=== PATIENT | male | born 1955 | race Caucasian/White ===

== ENCOUNTER → 2018-11-18 | Outpatient (CLI) | payer OTHER, MEDICARE ==
[~2018-11-18] MED LIST: CYCL10 PO; DRON2.5 PO; FENO48 PO; FENT50TP TOP; HYDMOR2 PO; LEVO750 PO; Omeprazole20 M1 PO; Tylenol325 MG PO; ZESTORETIC 20-121 EA PO
== END ==
LOC: LAB SHORT 07:26 → OLS 07:26
DX: D22.39 Melanocytic nevi of other parts of face (principal); D48.5 Neoplasm of uncertain behavior of skin
CPT/HCPCS: 88341; 88342

== ENCOUNTER 2023-08-06 22:39 | Inpatient (IN) | payer OTHER ==
[~2023-08-06] VITALS: Ht 167.6 cm; Wt 52.3 kg
[2023-08-06] MEDS ORDERED: NS 1,000 ML IV ONE (23:27)
[2023-08-06 23:30] LABS: BASOPHILS ABSOLUTE AUTO 0.06 K/mm3 (0.00-0.23); BASOPHILS PERCENT AUTO 1 % (0-2); EOSINOPHILS ABSOLUTE AUTO 0.06 K/mm3 (0.00-0.68); EOSINOPHILS PERCENT AUTO 1 % (0-6); Hematocrit 35.8 % (37.0-53.0); Hemoglobin 12.7 g/dL (13.5-17.5); IMMATURE GRAN ABSOLUTE AUTO 0.52 K/mm3 (0.00-0.10); IMMATURE GRAN PERCENT AUTO 5 % (0-1); LYMPHOCYTES ABSOLUTE AUTO 1.09 K/mm3 (0.84-5.20); LYMPHOCYTES PERCENT AUTO 11 % (21-46); MONOCYTES ABSOLUTE AUTO 1.01 K/mm3 (0.16-1.47); MONOCYTES PERCENT AUTO 10 % (4-13); Mean Corpuscular HGB 31.1 pg (26.0-34.0); Mean Corpuscular HGB Conc 35.5 g/dL (31.5-36.5); Mean Corpuscular Volume 88 fL (80-100); Mean Platelet Volume 9.4 fL (9.1-12.4); NEUTROPHILS ABSOLUTE AUTO 7.56 K/mm3 (1.96-9.15); NEUTROPHILS PERCENT AUTO 73 % (41-73); Platelet Count 366 K/mm3 (150-400); RDW Coefficient Variation 13.5 % (11.7-14.2); RDW Standard Deviation 43.7 fL (35.1-46.3); Red Blood Cell Count 4.08 M/mm3 (4.30-5.90)
[2023-08-06] MEDS ORDERED: Ondansetron HCl 2 MG / ML 2ML Vial IV PRN (23:30)
[2023-08-06 23:53] LABS: Albumin, Blood 3.2 g/dL (3.4-5.0); Albumin/Globulin Ratio 0.8 (0.8-1.8); Bilirubin, Total 0.3 mg/dL (0.1-1.0); Bun/Creatinine Ratio 69.2 (12.0-20.0); Calcium, Blood 9.1 mg/dL (8.5-10.1); Creatinine, Blood 2.37 mg/dL (0.60-1.20); Globulin, Blood 3.9 g/dL (2.2-4.0); Potassium, Blood 3.9 mmol/L (3.5-5.5); Total Protein, Blood 7.1 g/dL (6.4-8.2)
[2023-08-07] VITALS (11 sets, daily range): BP systolic 89–120; BP diastolic 57–97
[2023-08-07] MEDS ORDERED: Lactated Ringer's 1,000 ML IV ONE (00:15)
[2023-08-07 00:21] LABS: Magnesium, Blood 2.4 mg/dL (1.6-2.4)
[2023-08-07 00:38] LABS: Beta-hydroxybutyrate 11.2 mg/dL (0.2-2.8)
[2023-08-07] MEDS ORDERED: NS 1,000 ML IV SCH (00:45)
[2023-08-07] MEDS ORDERED: Ondansetron HCl 2 MG / ML 2ML Vial IV PRN (00:50)
[2023-08-07] MEDS ORDERED: Diltiazem HCl 5 MG / ML 5ML Vial IV ONE (01:30)
[2023-08-07] MEDS ORDERED: Loperamide HCl 2 MG Cap PO PRN (01:30)
[2023-08-07] MEDS ORDERED: AMLO5 PO (01:40)
[2023-08-07 02:39] LABS: Base Excess Venous -5.4 mmol/L; PCO2 Venous 25.7 mmHg (38-42); pH Blood Venous 7.46 (7.34-7.37)
[2023-08-07] MEDS ORDERED: Tambocor100 MG PO (02:51)
[2023-08-07] MEDS ORDERED: METO100ER PO (02:52)
[2023-08-07 02:53] LABS: International Normalized Ratio 1.29; Prothrombin Time Results 13.5 Sec (9.7-11.5)
[2023-08-07 02:56] LABS: Campylobacter Sp Not Detected (NOT DETECT)
[2023-08-07 02:57] LABS: Adenovirus F 40/41 Not Detected (NOT DETECT); Astrovirus Not Detected (NOT DETECT); Cryptosporidium Not Detected (NOT DETECT); Cyclospora Cayetanensis Not Detected (NOT DETECT); E. Coli O157 Not Detected (NOT DETECT); Entamoeba Histolytica Not Detected (NOT DETECT); Enteroaggregative E. coli-EAEC Not Detected (NOT DETECT); Enteropathogenic E. coli-EPEC Not Detected (NOT DETECT); Enterotoxigenic E. coli-ETEC Not Detected (NOT DETECT); Giardia Lamblia Not Detected (NOT DETECT); Norovirus GI/GII Not Detected (NOT DETECT); Plesiomonas Shigelloides Not Detected (NOT DETECT); Rotavirus A Not Detected (NOT DETECT); Salmonella Sp Not Detected (NOT DETECT); Sapovirus Not Detected (NOT DETECT); Shiga Toxin-prod E. coli-STEC Not Detected (NOT DETECT); Shigella/Enteroin E. coli-EIEC Not Detected (NOT DETECT); Vibrio Cholerae Not Detected (NOT DETECT); Vibrio Sp Not Detected (NOT DETECT); Yersinia Enterocolitica Not Detected (NOT DETECT)
[2023-08-07] MEDS ORDERED: FURO20 PO (03:37)
[2023-08-07] MEDS ORDERED: ALBU8HFA2 INH (03:39)
--- NOTE | 2023-08-07 04:19 | NUR ---
ASSUMPTION OF CARE/TRANSFER NOTE THIS RN RECEIVED REPORT FROM TRACI NELSON IN THE ED. PT TO PCU AT 0314. ABLE TO AMBULATE FROM GURNEY TO BED. USED COMMODE UPON ARRIVAL. UNABLE TO GET URINE SAMPLE STOOL AND URINE MIXED. PT A&O X4. ABLE TO MAKE NEEDS KNOWN. AFIB WITH HR 90-120 AT REST. HR NOTED TO INCREASE TO 140'S WITH ACTIVITY. PT DENIES CHEST PAIN/PRESSURE. REPORTS OCCASIONAL DIZZINESS. TEMP 99.0 AT THIS TIME. BP STABLE WITH SBP 100-110'S. ON RA WITH SPO2 >92%. BED IN LOWEST POSITION AND CALL LIGHT WITHIN REACH. THIS RN WILL REPORT TO KATELYNN DONOHUE RN.
[2023-08-07 04:34] LABS: Hematocrit 35.5 % (37.0-53.0); Hemoglobin 12.3 g/dL (13.5-17.5); Mean Corpuscular HGB 31.2 pg (26.0-34.0); Mean Corpuscular HGB Conc 34.6 g/dL (31.5-36.5); Mean Corpuscular Volume 90 fL (80-100); Mean Platelet Volume 9.3 fL (9.1-12.4); Platelet Count 315 K/mm3 (150-400); RDW Coefficient Variation 13.6 % (11.7-14.2); Red Blood Cell Count 3.94 M/mm3 (4.30-5.90); White Blood Cell Count 9.67 K/mm3 (4.00-11.30)
[2023-08-07 05:03] LABS: Albumin, Blood 2.9 g/dL (3.4-5.0); Albumin/Globulin Ratio 0.8 (0.8-1.8); Bilirubin, Total 0.4 mg/dL (0.1-1.0); Bun/Creatinine Ratio 73.7 (12.0-20.0); Calcium, Blood 8.5 mg/dL (8.5-10.1); Creatinine, Blood 1.86 mg/dL (0.60-1.20); Globulin, Blood 3.5 g/dL (2.2-4.0); Potassium, Blood 3.8 mmol/L (3.5-5.5); Total Protein, Blood 6.4 g/dL (6.4-8.2)
[2023-08-07 05:07] LABS: BAND PERCENT MAN 6 % (0-8); BASOPHILS PERCENT MAN 0 % (0-2); EOSINOPHILS PERCENT MAN 0 % (0-6); LYMPHOCYTES % ATYPICAL MANUAL 2 % (0-0); LYMPHOCYTES ABSOLUTE MAN 1.25 K/mm3 (0.84-5.20); LYMPHOCYTES PERCENT MAN 11 % (21-46); METAMYELOCYTE ABSOLUTE MAN 0.09 K/mm3 (0.00-0.00); METAMYELOCYTE PERCENT MAN 1 % (0-0); MONOCYTES ABSOLUTE MAN 0.87 K/mm3 (0.16-1.47); MONOCYTES PERCENT MAN 9 % (4-13); NEUTROPHILS ABSOLUTE MAN 7.34 K/mm3 (1.96-9.15); PLASMA CELL ABSOLUTE MAN 0.09 K/mm3 (0.00-0.00); PLASMA CELLS PERCENT MAN 1 % (0-0); SEG NEUTROPHILS PERCENT MAN 70 % (41-73); TOTAL CELLS COUNTED 100
--- NOTE | 2023-08-07 06:14 | NUR ---
MD NOTIFICATION SPOKE TO MD ENNIS REGARDING PT'S BP TRENDING DOWN, ALONG WITH 3-4 EPISODES OF DIARRHEA SINCE ARRIVAL TO UNIT DESPITE IMMODIUM. MD ENNIS WITH ORDER FOR 500ML BOLUS, WILL ADMINISTER PER EMAR.
[2023-08-07] MEDS ORDERED: NS 500 ML IV ONE (06:15)
[2023-08-07] MEDS ORDERED: Albuterol HFA200 ACT/6.7 GM INH INH PRN ×2 (06:25→09:00)
[2023-08-07] MEDS ORDERED: OxyCODONE HCL 5 MG TAB PO PRN (08:50)
--- NOTE | 2023-08-07 08:52 | NUR ---
Upon receiving a referral for spiritual care, I visited with the patient. He talks about his health concerns and shares that he is currently at the age in which both his parents . He shares that he has no oriental orthodox preference but he clearly believes in God and refers to God's evidence in nature and in his life. I provided therapeutic listening, gentle alcohol and drug counselor on remaining centered when answers are unclear and prayer. Patient responded well and showed signs of reduced stress. I will continue to remain available.
[2023-08-07] MEDS ORDERED: Heparin Sodium,Porcine 5,000 UNIT/0.5 ML SDV SC SCH (09:00)
[2023-08-07] MEDS ORDERED: Ipratropium/Albuterol SulF 2.5-0.5MG/3 ML Amp INH SCH (09:00)
[2023-08-07] MEDS ORDERED: Metoprolol Succinate 50 MG TABCR PO SCH (09:00)
[2023-08-07] MEDS ORDERED: Lactated Ringer's 500 ML IV ONE (09:00)
[2023-08-07] MEDS ORDERED: Flecainide Acetate 100 MG Tab PO SCH (09:00)
[2023-08-07 10:20] LABS: Source, Urine Clean Catch
[2023-08-07 10:31] LABS: Appearance, Urine Clear (Clear); Bilirubin, Urine Neg (Neg); Blood, Urine Neg (Neg); Color, Urine Yellow (P-Yellow); Glucose Qualitative, Urine Neg (Neg); Ketones, Urine Neg (Neg); Leukocyte Esterase, Urine Neg (Neg); Nitrite, Urine Neg (Neg); Protein, Urine Neg (Neg); Urobilinogen, Urine NORM (Normal)
[2023-08-07] MEDS ORDERED: Lactated Ringer's 1,000 ML IV SCH (11:05)
[2023-08-07 11:58] LABS: Base Excess Venous -4.1 mmol/L; Bicarbonate Venous 20.9 mmol/L (24.0-30.0); PCO2 Venous 34 mmHg (38-42)
[2023-08-07 13:29] LABS: Bun/Creatinine Ratio 69.9 (12.0-20.0); Calcium, Blood 8.3 mg/dL (8.5-10.1); Creatinine, Blood 1.53 mg/dL (0.60-1.20); Magnesium, Blood 1.9 mg/dL (1.6-2.4)
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
[2023-08-07] MEDS ORDERED: Naloxone HCl 0.4MG / ML 1ML Vial IV PRN (20:30)
[2023-08-07] MEDS ORDERED: FentaNYL Citrate 50 MCG/ML 2 ML Injection IV PRN (20:30)
[2023-08-07] MEDS ORDERED: Acetaminophen 325 MG TABLET PO PRN (20:45)
--- NOTE | 2023-08-07 21:00 | NUR ---
ASSUMPTION OF CARE: THIS RN ASSUMED CARE OF PT AT APPROX 1900. PT ALERT, ORIENTED X4. FLAT AFFECT BUT COOPERATIVE W/ CARE. HR 70-80'S, SINUS W/ PAC'S ON TELE. SBP 90'S, MAP>65. DENIES CHEST PAIN/PRESSURE. SPO2 >95% ON RA, RESPIRATIONS EVEN & UNLABORED. AFEBRILE. UP TO BSC W/ 1P ASSIST, REPORTS PASSING FLATUS BUT NO BM'S. REPOSITIONING INDEPENDENTLY. PT VOICES SIGNIFICANT CONCERN OVER PAIN MANAGEMENT AT THIS TIME. PT STATES HE HAS NOT BEEN ADMINISTERING BOLUS DOSES OF FENTANYL THROUGH HIS PAIN PUMP PER PHYSICIAN ORDERS. PT STATES THAT PO OXYCODONE IS NOT MANAGING HIS PAIN AND IS MAKING HIS STOMACH "FEEL UPSET." CALL TO RESIDENT PHYSICIAN. ORDERS TO D/C OXYCODONE & START IV FENTANYL PRN. DISCUSSED PLAN W/ PT & PT REFUSED IV FENTANYL; REPORTS CONCERNS FOR "OVERDOSING" AND "GOING TO SLEEP AND NOT WAKING UP". PT REQUESTS TYLENOL FOR PAIN MANAGEMENT INSTEAD. TYLENOL ADMINISTERED PER EMAR. PT RESTING IN BED AT THIS TIME. CALL LIGHT IN REACH.
[2023-08-08 04:00] VITALS: BP 114/62
[2023-08-08 04:19] LABS: Base Excess Venous -4.3 mmol/L; Bicarbonate Venous 21.6 mmol/L (24.0-30.0); PCO2 Venous 28.4 mmHg (38-42); pH Blood Venous 7.45 (7.34-7.37)
[2023-08-08 05:28] LABS: Albumin, Blood 2.6 g/dL (3.4-5.0); Anion Gap 13 mmol/L (3-11); Blood Urea Nitrogen 59 mg/dL (8-24); Bun/Creatinine Ratio 49.2 (12.0-20.0); CO2, Blood 20 mmol/L (21-32); Calcium, Blood 8.3 mg/dL (8.5-10.1); Chloride, Blood 112 mmol/L (98-108); Glomerular Filtration Rate 67 (60-); Glucose, Blood 92 mg/dL (70-99); Magnesium, Blood 1.6 mg/dL (1.6-2.4); Phosphorus, Blood 2.7 mg/dL (2.5-4.9); Potassium, Blood 3.8 mmol/L (3.5-5.5); Sodium, Blood 141 mmol/L (136-145)
--- NOTE | 2023-08-08 05:38 | NUR ---
END OF SHIFT NOTE: NO ACUTE EVENTS OVERNIGHT. PT HAS REMAINED ALERT, ORIENTED X4. ABLE T0 CALL APPROPRIATELY & COMMUNICATE NEEDS. HR 70'S, SINUS ON TELE. SBP 90-110'S, DENIES CHEST PAIN/PRESSURE. SPO2 >95% ON RA. AFEBRILE. UP TO BSC FOR MULTIPLE VOIDS, 1 LIQUID BM. INDEPENDENTLY REPOSITIONING IN BED. REPORTS IMPROVEMENT IN PAIN CONTROL THIS AM. NO OTHER NEEDS AT THIS TIME. CALL LIGHT IN REACH. WILL REPORT TO ONCOMING RN.
[2023-08-08 06:03] LABS: BASOPHILS ABSOLUTE AUTO 0.04 K/mm3 (0.00-0.23); BASOPHILS PERCENT AUTO 0 % (0-2); EOSINOPHILS ABSOLUTE AUTO 0.12 K/mm3 (0.00-0.68); EOSINOPHILS PERCENT AUTO 1 % (0-6); Hemoglobin 10.6 g/dL (13.5-17.5); IMMATURE GRAN ABSOLUTE AUTO 0.23 K/mm3 (0.00-0.10); IMMATURE GRAN PERCENT AUTO 2 % (0-1); LYMPHOCYTES ABSOLUTE AUTO 1.44 K/mm3 (0.84-5.20); LYMPHOCYTES PERCENT AUTO 15 % (21-46); MONOCYTES ABSOLUTE AUTO 0.67 K/mm3 (0.16-1.47); MONOCYTES PERCENT AUTO 7 % (4-13); Mean Corpuscular HGB 30.4 pg (26.0-34.0); Mean Corpuscular HGB Conc 33.1 g/dL (31.5-36.5); Mean Corpuscular Volume 92 fL (80-100); NEUTROPHILS ABSOLUTE AUTO 7.36 K/mm3 (1.96-9.15); NEUTROPHILS PERCENT AUTO 75 % (41-73); Platelet Count 329 K/mm3 (150-400); RDW Coefficient Variation 14.2 % (11.7-14.2); RDW Standard Deviation 47.8 fL (35.1-46.3); Red Blood Cell Count 3.49 M/mm3 (4.30-5.90); White Blood Cell Count 9.86 K/mm3 (4.00-11.30)
[2023-08-08 08:10] VITALS: BP 127/82
[2023-08-08] MEDS ORDERED: Mag Sulfate 1 GM/D5% 100ML 100 ML IV STA (09:32)
[2023-08-08] MEDS ORDERED: Potassium Chloride 40 MEQ in NS 250 ML IV ONE (09:35)
[2023-08-08] MEDS ORDERED: NS 1,000 ML BAG IR SCH (09:55)
[2023-08-08] MEDS ORDERED: NS 250 ML IV PRN (09:55)
[2023-08-08 15:19] VITALS: BP 106/78
--- NOTE | 2023-08-08 16:44 | NUR ---
SHIFT SUMMARY: PT REMAINS ALERT AND ORIENTED X4, ABLE TO FOLLOW COMMANDS AND MAKE NEEDS KNOWN. STRENGTH EQUAL BILATERALLY. BP AND HR STABLE. AFEBRILE. SPO2 >98% ON ROOM AIR. RESPIRATIONS EVEN AND UNLABORED. PT ABLE TO SHOWER THIS AM. TOLERATED WELL. PT/OT ORDERED. DIET ADVANCED TO REGULAR. SBA TO AND FROM BATHROOM. CALLS APPROPRIATELY. NOW MEDICAL NO TELE STATUS. PT CURRENTLY WATCHING TV IN BED. BED IN LOW, CALL LIGHT IN REACH, WILL REPORT TO ONCOMING RN.
--- NOTE | 2023-08-08 18:00 | NUR ---
TRANSFER: PT TRANSFERRED TO [facility] 339 VIA WHEELCHAIR. REPORT GIVEN TO KEON Negron RN. ALL BELONGINGS WITH PT
--- NOTE | 2023-08-08 18:02 | NUR ---
patient transferred to room 339 via w/c, report from pcu
[2023-08-08 19:23] VITALS: BP 106/64
[2023-08-09 03:49] VITALS: BP 116/78
--- NOTE | 2023-08-09 04:37 | NUR ---
SHIFT SUMMARY: Pt is admitted for acute kidney injury and is a full code. Is alert and able to make his needs known. Has been a SBA for ADLs. denies pain or discomfort outside of normal when asked but is managed by internal fentanyl pump in right lower ABD. was given prn for diarrhea and nausea.
[2023-08-09 05:44] LABS: BASOPHILS ABSOLUTE AUTO 0.08 K/mm3 (0.00-0.23); BASOPHILS PERCENT AUTO 1 % (0-2); EOSINOPHILS ABSOLUTE AUTO 0.13 K/mm3 (0.00-0.68); EOSINOPHILS PERCENT AUTO 1 % (0-6); Hematocrit 34.6 % (37.0-53.0); Hemoglobin 11.5 g/dL (13.5-17.5); IMMATURE GRAN ABSOLUTE AUTO 0.36 K/mm3 (0.00-0.10); IMMATURE GRAN PERCENT AUTO 2 % (0-1); LYMPHOCYTES ABSOLUTE AUTO 1.71 K/mm3 (0.84-5.20); LYMPHOCYTES PERCENT AUTO 11 % (21-46); MONOCYTES ABSOLUTE AUTO 0.83 K/mm3 (0.16-1.47); MONOCYTES PERCENT AUTO 5 % (4-13); Mean Corpuscular HGB 31.2 pg (26.0-34.0); Mean Corpuscular HGB Conc 33.2 g/dL (31.5-36.5); Mean Corpuscular Volume 94 fL (80-100); Mean Platelet Volume 8.9 fL (9.1-12.4); NEUTROPHILS ABSOLUTE AUTO 12.14 K/mm3 (1.96-9.15); NEUTROPHILS PERCENT AUTO 80 % (41-73); Platelet Count 376 K/mm3 (150-400); RDW Coefficient Variation 14.2 % (11.7-14.2); RDW Standard Deviation 48.9 fL (35.1-46.3); Red Blood Cell Count 3.69 M/mm3 (4.30-5.90); White Blood Cell Count 15.25 K/mm3 (4.00-11.30)
[2023-08-09 06:01] LABS: Bun/Creatinine Ratio 25.1 (12.0-20.0); Calcium, Blood 8.6 mg/dL (8.5-10.1); Potassium, Blood 4.2 mmol/L (3.5-5.5)
[2023-08-09 08:00] VITALS: BP 132/76
[2023-08-09] MEDS ORDERED: Calcium Carbonate 500 MG Tab Chew PO PRN (09:15)
[2023-08-09] MEDS ORDERED: Famotidine 20 MG Tab PO SCH (10:00)
[2023-08-09 15:44] VITALS: BP 116/71
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
--- NOTE | 2023-08-10 07:30 | NUR ---
ASSUMED CARE: PT RESTING IN BED ON RA, NO TELE. IV LEAKING SO REMOVED. RT AT BEDSIDE. NO ACUTE NEEDS OR CONCERNS AT THIS TIME.
[2023-08-10 07:41] VITALS: BP 132/81
--- NOTE | 2023-08-10 09:47 | NUR ---
DR ARMAS CAME TO SEE PT AND STATED HE MAY DC TODAY. PT'S FRIEND AND PT EXPRESSED CONCERNS WITH THIS DUE TO PT BEING WEAK AND LIVING AT HOME ALONE. ATTEMPTED CALL TO RELAY THIS TO AWAITING RETURN CALL
--- NOTE | 2023-08-10 10:30 | NUR ---
DR ARMAS MADE AWARE THAT PT WAS WORRIED ABOUT BEING DISCHARGED TODAY. STATED HE WOULD COME AND TALK TO PT AGAIN.
--- NOTE | 2023-08-10 13:42 | NUR ---
CALL TO DR ARMAS TO RELAY THAT PT WAS CONCERNED ABOUT GOING HOME TODAY GIVEN HE IS WEAK AND WISHES TO HAVE ONE MORE DAY IN HOSPITAL. UPON REVIEWING BASELINE, PT STATES THAT HE NORMALLY HAS TROUBLE WALKING AND DRIVING. SPOKE WITH OT WHO DID THEIR EVALUATION AND THEY STATED THEY WOULD HAVE PHYSICAL THERAPY COME SEE PT. ADVISES CONSULT PRIOR TO DC AND IF RECOMMENDATION CHANGES TO LET HIM KNOW.
--- NOTE | 2023-08-10 13:59 | NUR ---
PHYSICAL THERAPY CALLED BACK AND STATED THAT THEY WILL TRY TO PRIORITIZE PT FOR TODAY. INFORMED THEM TO LET THIS RN KNOW IF UNABLE TO SEE PT TODAY DUE TO DELAY IN DISCHARGE CURRENTLY
[2023-08-10] MEDS ORDERED: LOPE2C PO (14:03)
--- NOTE | 2023-08-10 15:28 | NUR ---
DISCHARGE: PHYSICAL THERAPY WORKED WITH PT AND CONTINUED WITH THE RECOMMENDATION FOR HOME WITH OUTPT PHYSICAL THERAPY. PT'S IV DC'D THIS AM. DISCUSSED HOME MEDS AND FOLLOW UP APPOINTMENTS. DENIED NEEDS OR CONCERNS. ESCORTED OUT VIA WHEELCHAIR BY THIS RN.
== END 2023-08-10 15:18 | disposition home or self-care (01) | DRG 683 ==
LOC: ER 22:39 → MEDS 22:40 → ER 22:40 → PCU 22:40 → MEDS 08-07 00:43 → PCU 08-07 03:13 → MEDS 08-07 03:13 → PCU 08-08 09:54 → MEDS 08-08 17:50 → ENPENDDIS 08-10 13:04 → MEDS 08-10 15:18
PROVIDERS: Emergency Medicine; Student in an Organized Health Care Education/Training Program; ADMIT Internal Medicine
DX: N17.9 Acute kidney failure, unspecified (principal); E87.1 Hypo-osmolality and hyponatremia; K52.9 Noninfective gastroenteritis and colitis, unspecified; E86.0 Dehydration; E78.5 Hyperlipidemia, unspecified; C44.90 Unspecified malignant neoplasm of skin, unspecified; K21.9 Gastro-esophageal reflux disease without esophagitis; M54.9 Dorsalgia, unspecified; G89.29 Other chronic pain; E88.89 Other specified metabolic disorders; E86.9 Volume depletion, unspecified; D64.9 Anemia, unspecified; I10 Essential (primary) hypertension; I48.0 Paroxysmal atrial fibrillation; Z79.899 Other long term (current) drug therapy; Z88.2 Allergy status to sulfonamides; Z91.048 Other nonmedicinal substance allergy status; Z79.2 Long term (current) use of antibiotics; Z98.890 Other specified postprocedural states
CPT/HCPCS: 36415; 76770; 80048; 80053; 80069; 81003; 82010; 82803; 83605; 83735; 83880; 85025; 85610; 87507; 93005; 93010; 94640; 94664; 94760; 94762; 96361; 96374; 96375; 97110; 97116; 97161; 97167; 99285-25; A9270; J1644; J2405; J3475; J3480; J7030; J7050; J7120

== ENCOUNTER 2024-01-20 05:49 | Day surgery (SDC) | payer OTHER ==
[~2024-01-20] VITALS: Ht 167.6 cm; Wt 63.0 kg
[~2024-01-20 05:49] MED LIST changes: +ALBU8HFA2 INH; +AMLO5 PO; +FURO20 PO; +LOPE2C PO; +METO100ER PO; +Tambocor100 MG PO; +ZANAFLEX413 PO
[2024-01-20] MEDS ORDERED: Heparin Sodium 1000 Units/ML 10ML MDV ONE (06:31)
[2024-01-20] MEDS ORDERED: Verapamil HCL 2.5 MG/ML 2ML Injection ONE (06:31)
[2024-01-20] MEDS ORDERED: NS 1,000 ML IV ONE ×2 (06:31→07:10)
[2024-01-20] MEDS ORDERED: NS 250 ML IV ONE (06:32)
[2024-01-20] MEDS ORDERED: Nitroglycerin 2 MG/20 ML BTL ONE (06:32)
[2024-01-20] MEDS ORDERED: FentaNYL Citrate 50 MCG/ML 2 ML Injection ONE (07:09)
[2024-01-20] MEDS ORDERED: Midazolam HCl 1MG / ML 2ML Vial ONE (07:10)
[2024-01-20 08:01] VITALS: BP 138/75
--- NOTE | 2024-01-20 08:07 | NUR ---
pt returns from lab to recovery room. vss upon arrival, pt alert and oriented. Right radial TR band in place with 10cc of air, distal cap refill and color wnl. No hematoma or oozing. Right AC sheath site wnl as well, no oozing, soft, silvia in place. pt. offered refreshments and breakfast. MUKESH call light in reach.
[2024-01-20 08:15] VITALS: BP 137/80
[2024-01-20 08:30] VITALS: BP 127/70
[2024-01-20 08:45] VITALS: BP 153/75
[2024-01-20 09:00] VITALS: BP 145/72
[2024-01-20 09:30] VITALS: BP 160/80
--- NOTE | 2024-01-20 09:38 | NUR ---
10CC AIR REMOVED FROM R WRIST TR BAND. NEG BLEEDING OR SWELLING.
--- NOTE | 2024-01-20 09:51 | NUR ---
PT AND SON VERBALIZED UNDERSTANDING OF WRITTEN AND VERBAL D/C INST. IV REMOVED. R WRIST TR BAND REMOVED AND CLOTH DOT DRSG PLACED OVER PUNCTURE AREA. PT WILL BE TAKEN OUT OF THE HRT [facility]ENTER VIA W/C.
== END 2024-01-20 10:45 | disposition home or self-care (01) ==
LOC: MHTC 05:49
DX: I27.20 Pulmonary hypertension, unspecified (principal); J84.9 Interstitial pulmonary disease, unspecified; I12.9 Hypertensive chronic kidney disease with stage 1 through stage 4 chronic kidney disease, or unspecified chronic kidney disease; N18.2 Chronic kidney disease, stage 2 (mild); E78.5 Hyperlipidemia, unspecified; K21.9 Gastro-esophageal reflux disease without esophagitis; I48.91 Unspecified atrial fibrillation; Z79.899 Other long term (current) drug therapy; Z88.8 Allergy status to other drugs, medicaments and biological substances; Z88.5 Allergy status to narcotic agent
CPT/HCPCS: 76937; 93456; 99152; C1769; C1887; C1894; J1644; J2250; J3010; J7030; J7050; Q9967